=== PATIENT | male | born 1965 | race Caucasian/White ===

== ENCOUNTER 2017-03-15 17:58 | Emergency (ER) | payer OTHER ==
[~2017-03-15] VITALS: Ht 170.2 cm; Wt 125.6 kg
[~2017-03-15 17:58] MED LIST: CLARITIN,AL1 MG/1 ML PO; FIORICET,ESG1 TABLET PO; FLOVENT 11120 INHALA IH; HYDROCHLOROTHIA25 MG PO; NORVASC2.5 MG PO; PULMICORT1 MG/2 ML IH; URECHOLINE25 MG PO
[2017-03-15 18:31] LABS: HEMATOCRIT 44.3 % (38.0-50.0); MCH 29.4 PG (29.0-34.0); MCHC 34.1 G/DL (30.0-36.0); MCV 86.4 FL (86-99); MEAN PLAT.VOLUME 9.7 uM^3 (9.0-12.4); PLATELET COUNT 244 K/uL (156-360); RBC DIS.WIDTH-CV 12.7 % (11.8-14.6); RED BLOOD COUNT 5.13 M/uL (4.00-5.50); WHITE BLOOD COUNT 8.5 K/uL (4.1-10.2)
[2017-03-15 18:42] LABS: CHLORIDE 103 mEq/L (99-109); POTASSIUM 3.2 mEq/L (3.7-5.4); SODIUM 142 mEq/L (136-147)
[2017-03-15 18:43] LABS: GLUCOSE 86 mg/dL (70-99)
[2017-03-15 18:45] LABS: ANION GAP 9 MEQ/L (2-14)
[2017-03-15 18:47] LABS: GFR ESTIMATE (CALCULATED) > 59 mL/min/
[2017-03-15 18:48] LABS: UREA NITROGEN (BUN) 15 mg/dL (9-23)
[2017-03-15 19:16] LABS: TOTAL BILIRUBIN 0.7 mg/dL (0.0-1.0)
[2017-03-15 19:17] LABS: ALKALINE PHOSPHATASE 63 IU/L (3-129)
[2017-03-15 19:19] LABS: DIRECT BILIRUBIN 0.2 mg/dL (0.0-0.3)
[2017-03-15 19:20] LABS: LIPASE 14 U/L (1.0-51.0)
[2017-03-15 20:05] LABS: ADD MIUA? NO; BILIRUBIN NEGATIVE; BLOOD NEGATIVE; COLOR YELLOW ((YELLOW)); GLUCOSE (STRIP) NEGATIVE; KETONES NEGATIVE; LEUKOCYTES NEGATIVE; NITRITE NEGATIVE; PROTEIN (STRIP) NEGATIVE; SPECIFIC GRAVITY 1.019 (1.000-1.030); UCUL ADDED? NO; UROBILINOGEN 0.2 MG/DL (0.2-1.0)
[2017-03-15 20:09] LABS: TROP-I INTERPRETATION NEGATIVE; TROPONIN-I < 0.01 ng/mL (0.0-0.30)
[2017-03-15 21:00] VITALS: BP 162/93
== END 2017-03-15 21:03 | disposition home or self-care (01) ==
LOC: RME 17:58 → EME 17:58 → RME 21:03
DX: R63.0 Anorexia (principal); E87.6 Hypokalemia; R11.0 Nausea; I10 Essential (primary) hypertension; J45.909 Unspecified asthma, uncomplicated; Z87.442 Personal history of urinary calculi
CPT/HCPCS: 80048; 80076; 81003; 83690; 84484; 85027; 93005; 99281; 99284